=== PATIENT | male | born 1960 | race Caucasian/White ===

== ENCOUNTER 2025-01-02 16:39 | Emergency (ER) | payer MEDICARE, BC ==
[2025-01-02] MEDS: Acetaminophen/HYDROcodone 325-5 MG Tab PO ONE (17:07)
[2025-01-02] MEDS: cefTRIAXone 1 GM Vial IM ONE (17:09)
[2025-01-02] MEDS: Lidocaine 1% 5 ML VIAL INJECT ONE (17:13)
[2025-01-02] MEDS: Bacitracin Oint 1 GM U/D Packet TOP ONE (17:30)
[2025-01-02] MEDS: Diphtheria,Pertussis(Acell),Tetanus Vaccine 0.5 ML Syringe IM ONE (17:35)
== END 2025-01-02 17:45 | disposition home or self-care (01) ==
LOC: LB.ED 16:39
DX: L03.116 Cellulitis of left lower limb (principal); Z23 Encounter for immunization; Z87.891 Personal history of nicotine dependence
CPT/HCPCS: 90471; 90715; 96372; 99283; 99283-25; A9270-GY; J0696; J2003